=== PATIENT | male | born 1990 | race African-American/Black ===

== ENCOUNTER 2017-09-20 22:01 | Emergency (ER) | payer OTHER, SELFPAY ==
[2017-09-20] MEDS ORDERED: Lidocaine 1% 20 ML MDV ONE (22:14)
[2017-09-20] MEDS ORDERED: Acetaminophen/Codeine 30-300mg Tablet ONE (23:17)
== END 2017-09-20 22:26 | disposition home or self-care (01) ==
LOC: NAV ERS 22:01
DX: S01.511A Laceration without foreign body of lip, initial encounter (principal); S03.2XXA Dislocation of tooth, initial encounter; Y04.0XXA Assault by unarmed brawl or fight, initial encounter
CPT/HCPCS: 12052; J2001